=== PATIENT | female | born 1970 | race Two or more races ===

== ENCOUNTER 2019-02-18 08:31 | Emergency (ER) | payer MEDICAID, OTHER ==
[~2019-02-18] VITALS: Ht 157.5 cm; Wt 64.9 kg
--- NOTE | 2019-02-18 08:40 | NUR ---
dr sorenson at bedside for eval.
--- NOTE | 2019-02-18 08:48 | NUR ---
iv line started blood drawn and sent to lab.
[2019-02-18 08:56] LABS: BASOPHILS % (AUTO) 0.8 % (0.0-2.0); EOSINOPHILS % (AUTO) 2.7 % (0.0-6.0); HEMATOCRIT 38 % (33-45); HEMOGLOBIN 12.4 g/dL (11.5-14.8); LYMPHOCYTES # (AUTO) 1.8 /CMM (0.8-4.8); LYMPHOCYTES % (AUTO) 36.9 % (20.0-44.0); MEAN CORPUSCULAR HGB CONC 33 g/dl (31.0-36.0); MEAN CORPUSCULAR VOLUME 100 fL (82-100); MONOCYTES # (AUTO) 0.3 /CMM (0.1-1.30); NEUTROPHILS # (AUTO) 2.6 /CMM (1.8-8.9); NEUTROPHILS % (AUTO) 52.6 % (43.0-81.0); PLATELET COUNT (AUTO) 372 /CMM (150-450); RED BLOOD CELL COUNT(AUTO) 3.75 MIL/uL (4.0-5.2)
[2019-02-18 08:59] LABS: CALCIUM, SERUM 9.7 mg/dL (8.5-10.1); CARBON DIOXIDE 33 mmol/L (21-32); CHLORIDE 104 mmol/L (98-107); CREATININE 0.9 mg/dL (0.6-1.3); GLUCOSE 113 mg/dL (74-106); POTASSIUM 4.1 mmol/L (3.5-5.1); SODIUM SERUM 141 mmol/L (136-145); UREA NITROGEN, BLOOD 8 mg/dL (7-18)
--- NOTE | 2019-02-18 09:44 | NUR ---
pt provided w/ meal tray.
--- NOTE | 2019-02-18 10:20 | NUR ---
[facility] social services aide at bedside. talking to patient.
--- NOTE | 2019-02-18 10:45 | NUR ---
IV removed. Catheter intact and site benign. Pressure and 4x4 applied to site. No bleeding noted.
--- NOTE | 2019-02-18 11:02 | NUR ---
spoke to older adult social work specialist. was provided w/ tap card for transportation. signed homeless waiver. d/c in stable condition.
[2019-02-18 11:05] VITALS: BP 147/98
--- NOTE | 2019-02-18 15:17 | NUR ---
Social service consult requested by ER for homelessness. Pt. is a 48 year old female who visited the ER for shortness of breath. SW met with pt. at bedside. Pt. was sitting up in her bed. Pt. looks disheveled. Pt. is ambulatory and states that she is able to walk independently. Pt. is oriented x 4. Pt.s cell phone number is . Pt. states that she is currently homeless. Pt. states that she has been staying with her friend, Elen Rowland at [id number], [place], [place], for about two weeks but is no longer comfortable staying there. Pt. was staying at a recuperative care facility from the [facility] [address] [address] prior but left because she was hoping she had found permanent housing with her friend Elen Aparicio. However, Pt. states that she wants to return to the recuperative care facility now but needs to be referred by a hospital social work faculty member in order to be accepted back in. SW called the facility to inquire about the referral process and confirmed the need for referral. SW filled out referral and faxed it to the facility. The education and outreach coordinator also informed the SW that it will take a couple of days for a bed to be available, and SW informed the pt. and provided information for emergency detention. Pt. initially was receptive and SW called [address] [address] and confirmed bed availability. Pt. then changed her mind and stated that she will continue to stay with her friend until a bed becomes available at the recuperative care facility. SW also provided pt. with additional detention referrals, including: [facility] [address] [place] [address] , [place] [id number] [place] [address] , and the [facility]eless Resources Directory. Homeless waiver was signed by pt. and placed in pt.s chart. Pt. will require a TAP card upon discharge. No other services needed at this time. SW is available if needed.
== END 2019-02-18 11:05 | disposition home or self-care (01) ==
LOC: ER 08:34
DX: F41.9 Anxiety disorder, unspecified (principal); I10 Essential (primary) hypertension; Z59.0 Homelessness; Z98.890 Other specified postprocedural states
CPT/HCPCS: 36415; 71045-TC; 80048-TC; 84484-TC; 85025-TC